=== PATIENT | male | born 1985 ===

== ENCOUNTER → 2024-02-22 10:31 | Outpatient (BNVA) | payer OTHER, SELFPAY | PROVIDERS: Visit Provider Physician Assistant Medical | DX: S61.212A Laceration without foreign body of right middle finger without damage to nail, initial encounter (principal); S56.423A Laceration of extensor muscle, fascia and tendon of right middle finger at forearm level, initial encounter; W31.2XXA Contact with powered woodworking and forming machines, initial encounter | CPT/HCPCS: 12001; 99204 ==

== ENCOUNTER 2024-02-24 09:01 | Outpatient (AMB) | payer OTHER, SELFPAY ==
--- NOTE | 2024-02-24 09:02 | MHC.OFFVIS ---
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 Patient reports he was using a band saw when a panel when forward, pulling his right hand with it. Denies numbness and tingling. Denies finger locking. Patient continues to take Cephalexin antibiotic as well as Tylenol PRN for pain. Reports prior injury to the right hand with a fence when he was a kid. 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 He sustained a work-related laceration to the dorsal radial aspect of his right middle finger just distal to the PIP joint on 02/22/2024. He was seen in the emergency department where the wound was washed out, sutured, he was placed in a splint and on oral antibiotics. 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 He has an oblique laceration over the dorsal radial aspect of the right middle finger just distal to the PIP joint. The laceration is about 1.5 cm in length, and is sutured closed. No drainage today. The patient is able to fully and actively extend the middle finger at all joints. He can hold the middle finger extended against resistance at the PIP and D IP joints, and without pain. He can actively flex and extend between 45 degrees and full extension without discomfort. Cap refill brisk and sensation intact to the tip of the digit in both the radial digital nerve and ulnar digital nerve distributions Radiographs: None available Psych Appearance: grossly normal Affect: normal affect Attitude: cooperative Assessment & Plan Assessment & Plan (1) Laceration of right middle finger: Code(s): S61.212A - Laceration without foreign body of right middle finger without damage to nail, initial encounter Category: Medical Plan Assessment and plan: 1. Right middle finger partial extensor tendon laceration Just distal and radial to the PIP joint. Central slip appears to be intact. Strong active and full extension of the PIP and D IP joints against resistance This is a work place related injury I educated the patient about this condition We discussed operative and non operative treatment options. The patient reports that the provider that is saw him at work connection saw that part of the tendon was cut. Given his physical exam, I believe we can manage this non operatively. I educated him about wound care and activity modification. He is going to perform daily dressing changes, and start washing the wound with soap and water in the shower on Thursday. We fitted him with a splint to hold the PIP joint in extension. He may remove this to shower. When he has it off he can actively move between 45 degrees of flexion and full extension at the PIP joint, but should not bring the PIP joint into any further flexion. I am ordering an OT hand therapy consult. I am thinking they can make him a custom thermoplastic splint that will prevent flexion beyond 45 degrees at the PIP joint but allow for full range of motion of the MCP joint. They can also work on gentle range of motion between full extension 45 degrees of flexion. I do not want him flexing beyond 45 degrees until 6 weeks post injury. Follow up next week for a wound check and suture removal. Continue antibiotics until finished. Coding Level of Care Code New Pt Level 4 (52463) Diagnoses Laceration of right middle finger S61.212A
== END 2024-02-24 09:57 | disposition home or self-care (01) ==
PROVIDERS: Visit Provider Orthopaedic Surgery
DX: S61.212A Laceration without foreign body of right middle finger without damage to nail, initial encounter (principal); Z04.2 Encounter for examination and observation following work accident
CPT/HCPCS: 29130; 99203

== ENCOUNTER → 2024-02-24 09:01 | Outpatient (BNVA) | payer OTHER, SELFPAY | PROVIDERS: Visit Provider Orthopaedic Surgery | DX: S61.212A Laceration without foreign body of right middle finger without damage to nail, initial encounter (principal) | CPT/HCPCS: 29130; 99202 ==

== ENCOUNTER 2024-03-02 13:19 | Outpatient (AMB) | payer OTHER, SELFPAY ==
--- NOTE | 2024-03-02 13:40 | MHC.OFFVIS ---
Intake Visit Reasons: OV-RT 3rd digit Laceration-Wound check Intake Note: Emory is a 38 year old right hand dominant male who presents today for a wound check and suture removal s/p work-related laceration to the right middle finger, DOI 02/22/24. Patient reports he is doing well. No pain or discomfort at the moment. Allergies augmentin Allergy (Unknown, Uncoded 02/24/24 09:08) Hives HPI HPI OV-RT 3rd digit Laceration-Wound check: Details: Emory is a 38 year old right hand dominant man who returns for a wound check of his right middle finger laceration, DOI: 02/22/24. He sustained a work-related laceration to the dorsal radial aspect of his right middle finger just distal to the PIP joint on 02/22/2024. He says he is doing well and he denies any pain. 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 He says he was suspended from work yesterday due to his injury. 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 All Sutures removed and Steri-Strips applied Vascular: Cap refill brisk and sensation intact to the tip of the digit in both the radial digital nerve and ulnar digital nerve distributions ROM: He is able to fully and actively extend the middle finger at all joints. He can hold the middle finger extended against resistance at the PIP and DIP joints, and without pain. He can actively flex and extend between 45 degrees and full extension without discomfort. I did not make an flex beyond 45 degrees at the PIP joint. He has an oblique laceration over the dorsal radial aspect of the right middle finger just distal to the PIP joint. The laceration is ~1.5cm in length, and is sutured closed. No drainage today. Psych Appearance: grossly normal Affect: normal affect Attitude: cooperative Assessment & Plan Assessment & Plan (1) Laceration of right middle finger: Code(s): S61.212A - Laceration without foreign body of right middle finger without damage to nail, initial encounter Category: Medical Plan Assessment and plan: 1. Right middle finger partial extensor tendon laceration Just distal and radial to the PIP joint. Central slip appears to be intact. Strong active and full extension of the PIP and DIP joints against resistance This is a work place related injury, DOI: 02/22/24 I educated the patient about this condition We discussed operative and non operative treatment options. The patient reports that the provider that is saw him at work connection saw that part of the tendon was cut. Given his physical exam, I believe we can manage this non operatively. I educated him about wound care and activity modification. He will continue to perform wound care & dressing changes at home He will continue to wear his splint to hold the PIP joint in extension. He may remove this to shower. When he has it off he can actively move between 45 degrees of flexion and full extension at the PIP joint, but should not bring the PIP joint into any further flexion. He was given a note for work, to remain on light duty with a 2lb weight limit for 4 weeks, effective 03/02/24, and to wear his splint while at work OT hand therapy made him a custom thermoplastic splint that will prevent flexion beyond 45 degrees at the PIP joint but allow for full range of motion of the MCP joint. They can also work on gentle range of motion between full extension 45 degrees of flexion. I do not want him flexing beyond 45 degrees until 6 weeks post injury. He will follow up next week for a wound check and possible suture removal He will follow up in 4 weeks for a ROM check. Anticipate return to full duty at that time. Scribed for oRsa Javed MD by Johnnie Naqvi expert medical writer, on 03/02/24 at 1:55 PM, EST. Coding Level of Care Code Est Pt Level 3 (86272) Diagnoses Laceration of right middle finger S61.212A
== END 2024-03-02 14:11 | disposition home or self-care (01) ==
PROVIDERS: Visit Provider Orthopaedic Surgery
DX: S61.212A Laceration without foreign body of right middle finger without damage to nail, initial encounter (principal)
CPT/HCPCS: 99213

== ENCOUNTER → 2024-03-02 13:19 | Outpatient (BNVA) | payer OTHER, SELFPAY | PROVIDERS: Visit Provider Orthopaedic Surgery | DX: S61.212D Laceration without foreign body of right middle finger without damage to nail, subsequent encounter (principal) | CPT/HCPCS: 99212 ==

== ENCOUNTER 2024-03-30 12:47 | Outpatient (AMB) | payer OTHER, SELFPAY ==
--- NOTE | 2024-03-30 13:47 | MHC.OFFVIS ---
Vital Signs 03/30/24 13:50 Height 5 ft 3 in Weight 242 lb BMI 42.9 Intake Visit Reasons: OV-RT 3rd digit Laceration Intake Note: Emory is a 38 year old right hand dominant male who presents today for a wound check and suture removal s/p work-related laceration to the right middle finger, DOI 02/22/24. Patient reports improvement in his ROM with at home exercises however he continues to have some stiffness in his finger. States discomfort/pain with accidentally bumping his finger. He was not scheduled with OT due to worker comp insurance information not accurate. Allergies augmentin Allergy (Unknown, Uncoded 03/30/24 13:55) Hives HPI HPI OV-RT 3rd digit Laceration: Details: Emory is a 38 year old right hand dominant man who returns for a wound check of his right middle finger laceration, DOI: 02/22/24. He sustained a work-related laceration to the dorsal radial aspect of his right middle finger just distal to the PIP joint on 02/22/2024. He says he is doing well and he denies any pain most of the time. He does have pain if he bumps his finger against a surface. he says he has been working on ROM exercises at home. He was not able to attend OT due to an issue with his workers comp paperwork. He feels his motion has improved bur he still has some difficulty with stiffness. He says he discontinued his splint himself at home, and ended up losing it. 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 He ays his work did not recognize his work restrictions and he has been working full duty since his last appointment. 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 Review of Systems Const All systems reviewed & are unremarkable except as noted in HPI and below Physical Exam Vital Signs: BMI result Body Mass Index 42.9 Const General: no acute distress and alert Orientation/consciousness: patient oriented x3 Neuro General: patient oriented x3 Extrem Other: Evaluation of Right Upper Extremity: The patient is alert, oriented, and in no acute distress Neuro: Median, Ulnar, Radial nerves motor and sensory intact and sensation is normal to the tips of all digits Vascular: Cap refill brisk ROM: He is able to fully and actively extend the middle finger at all joints. He can hold the middle finger extended against resistance at the PIP and DIP joints, and without pain. He has full active extension of the PIP joint when the MCP joint is fully flexed He has a healed oblique laceration over the dorsal radial aspect of the right middle finger just distal to the PIP joint. Psych Appearance: grossly normal Affect: normal affect Attitude: cooperative Assessment & Plan Assessment & Plan (1) Laceration of right middle finger: Code(s): S61.212A - Laceration without foreign body of right middle finger without damage to nail, initial encounter Category: Medical Plan Assessment and plan: 1. Right middle finger partial extensor tendon laceration Just distal and radial to the PIP joint. Central slip appears to be intact. Strong active and full extension of the PIP and DIP joints against resistance This is a work place related injury, DOI: 02/22/24 I educated the patient about this condition He ended up losing his finger splint, and appears to be doing well in regards to his function He should massage about his finger to prevent any hypersensitivity He was unable to continue attending OT hand therapy due to an issue with his insurance and work connections. Despite losing his splint, he appears to be doing very well and with excellent active PIP extension. At this point he may resume all activities without restriction He will follow up prn Scribed for Rosa Javed MD by Johnnie Naqvi, mobile paramedical examiner, on 03/30/24 at 2:15 PM, EST. Scribe Plan - Not visible on output: Scribed for Rosa Javed MD by Johnnie Naqvi mobile paramedical examiner, on [ ] at [ ], EST. Coding Level of Care Code Est Pt Level 3 (98696) Diagnoses Laceration of right middle finger S61.212A
[2024-03-30 13:50] VITALS: BMI 42.9
== END 2024-03-30 14:29 | disposition home or self-care (01) ==
PROVIDERS: Visit Provider Orthopaedic Surgery
DX: S61.212A Laceration without foreign body of right middle finger without damage to nail, initial encounter (principal)
CPT/HCPCS: 99213

== ENCOUNTER → 2024-05-05 09:58 | Outpatient (BNVA) | payer OTHER, SELFPAY | PROVIDERS: Visit Provider Physician Assistant Medical | DX: M65.331 Trigger finger, right middle finger (principal); S66.322D Laceration of extensor muscle, fascia and tendon of right middle finger at wrist and hand level, subsequent encounter; W31.2XXD Contact with powered woodworking and forming machines, subsequent encounter | CPT/HCPCS: 99213 ==

== ENCOUNTER 2024-06-14 11:07 | Outpatient (AMB) | payer OTHER, SELFPAY ==
[2024-06-14 11:09] VITALS: BMI 42.9
--- NOTE | 2024-06-14 11:09 | A.OFFVIS_ITS ---
Vital Signs 06/14/24 11:09 Height 5 ft 3 in Weight 242 lb BMI 42.9 Intake Visit Reasons: OV- RT MF lac DOI 02/22/24, trigger finger Intake Note: Emory is a 38 year old right hand dominant male who presents today for s/p work-related laceration to the right middle finger, DOI 02/22/24. States his finger started to lock up about 1 month ago especially in the mornings and when driving. States its painful to pop his finger back up. Allergies augmentin Allergy (Unknown, Uncoded 06/14/24 11:12) Hives HPI HPI OV- RT MF lac DOI 02/22/24, trigger finger: Details: Emory is a 38 year old right hand dominant man who returns with a new complaint of right middle finger locking. he is S/P extensor tendon laceration, DOI: 02/22/24. This was a work-related injury. He complains of ~1 month of painful locking & catching of his middle finger, worse in the mornings. He says this occurred once while driving, but primarily locks up while he is sleeping. 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 He has full active extension of the PIP joint when the MCP joint is fully flexed No locking or catching of the middle finger seen today in clinic Minimally tender over the middle finger a1 federica Palpable bump felt passing under the a1 federica He has a healed oblique laceration over the dorsal radial aspect of the right middle finger just distal to the PIP joint. No tenderness over the laceration. Psych Appearance: grossly normal Affect: normal affect Attitude: cooperative Office Procedures AMB Fracture Care Details: No fracture, injection Fracture Billing Code: Fracture Billing Code Assessment & Plan Assessment & Plan (1) Trigger finger, right middle finger: Code(s): M65.331 - Trigger finger, right middle finger Category: Medical Plan Assessment and plan: 1. Right middle finger trigger finger This is a Work Connection visit I educated him about this condition I discussed operative and non-operative treatment options The patient would like to proceed with an injection Injection #1: The risks and benefits of a steroid injection including but not limited to risk of damage to blood vessels, nerves, tendons, infection, skin bleaching, failure to improve symptoms, increased pain, and possible need for further injections or other intervention were discussed with the patient and the patient wishes to proceed with the steroid injection. Once consent was obtained, I sterilely prepped the area over the A1 federica of the flexor tendon sheath of the Right middle finger. I then injected the flexor tendon sheath with a combination of 1 mL of dexamethasone (4mg/ml), and 1% lidocaine. The patient tolerated the procedure well with no complications. If the patient continues to have locking and catching 4-6 weeks following this injection, they may call to schedule appointment to discuss alternative treatment options He should be seen by me, as I want to make sure that this is indeed a trigger finger and not related to the dorsal laceration over the PIP joint. I do think it is most likely a trigger finger. Follow-up prn 2. Right middle finger partial extensor tendon laceration Just distal and radial to the PIP joint. Central slip appears to be intact. Strong active and full extension of the PIP and DIP joints against resistance This is a work place related injury, DOI: 02/22/24 Doing well overall Scribed for Rosa Javed MD by Johnnie Naqvi, medical records manager, on 06/14/24 at 11:30 AM, EST. Coding Level of Care Code Est Pt Level 4 (91829) Diagnoses Trigger finger, right middle finger M65.331 CPT Codes Fracture Care - Fracture Billing Code: Fracture Billing Code ([id number])
--- OUTSIDE RECORDS SUMMARY | 2024-06-14 13:59 | XMS_ITS | Clinical Summary ---
Author Organization [facility] Address [address] [place] [address] Phone Care Team Providers Care Telegraph Office Route Aide Name Role Phone Tylor Galvez MD Primary Care Provider [phone] Allergies Active Allergy Reactions Criticality Noted Date Comments Amoxicillin-Pot Clavulanate Hives 04/10/20 24 Iodinated Contrast Media Shortness of breath High Medications amLODIPine (NORVASC) 5 mg tablet Take 1 tablet (5 mg total) by mouth 1 (one) time each day for 14 days. 14 tablet 04/10/2024 Active Encounters Date Type Department Care Team Description 04/10/2024 6:35 AM EST - 04/10/2024 7:55 AM EST Emergency [facility] [address] [place] [address] Bridgette Izquierdo DO Nonintractable headache, unspecified chronicity pattern, unspecified headache type (Primary Dx); Hypertension, unspecified type Discharge Disposition: Home or Self Care from Last 3 Months Social History Tobacco Use Types Packs/Day Years Used Date Smoking Tobacco: Never Assessed Sex and Gender Information Value Date Recorded Sex Assigned at Not on file Legal Sex Male 12:56 PM EST Gender Identity Not on file Sexual Orientation Not on file Last Filed Vital Signs Vital Sign Reading Time Taken Comments Blood Pressure 160/117 04/10/2024 6:30 AM EST 160/117 left 154/113 right Pulse 90 04/10/2024 6:30 AM EST Temperature 36.8 ??C (98.2 ??F) 04/10/2024 6 :30 AM EST Respiratory Rate 16 04/10/2024 6:30 AM EST Oxygen Saturation 99% 04/10/2024 6:3 0 AM EST Inhaled Oxygen Concentration - - Weight 108 kg (239 lb) 04/10/2024 6:30 AM EST Height 160 cm (5' 3 ) 04/10/2024 6:30 AM EST Body Mass Index 42.34 04/10/2024 6:30 AM EST Plan of Treatment Health Maintenance Due Date Last Done Comments Diabetes: Annual GFR (Glomer ular Filtration Rate) 1984 Diabetes: Annual Foot Exam 1994 Diabetes: Annual Retina Eye Exam 1994 Hepatitis B Vaccines (1 of 3 - 19+ 3-dose series) 10/24/2003 Pneumococcal Vaccine: Pediat rics (0 to 5 Years) and At-Risk Patients (6 to 64 Years) (1 of 2 - PCV) 10/24/2003 Cholesterol Screening (Lipid Panel) 03/11/2022 Depression Screening 03/11/2022 HIV Screening 03/11/2022 Hepatitis C Screening 03/11/2022 Social Influencers of Health Screening 03/11/2022 COVID-19 Vaccine ( - 2023-2 5 season) 2023 Influenza Vaccine (#1) 2023 02/06/2017 Diabetes: Annual Urine Albumin-Creatinine Ratio (uACR) 02/18/2024 Diabetes: Blood Sugar Contro l Test (HGBA1C) 02/18/2024 Hypertension/CHF/CAD Annual BMP Blood Test 02/18/2024 DTaP,Tdap,and Td Vaccines (2 - Td or Tdap) 02/21/2034 02/22/2024 HIB Vaccines Aged Out No longer eligi ble based on patient's age to complete this topic HPV Vaccines Aged Out No longer eligi ble based on patient's age to complete this topic Hepatitis A Vaccines Aged Out No long er eligible based on patient's age to complete this topic IPV Vaccines Aged Out No longer eligi ble based on patient's age to complete this topic MMR Vaccines Aged Out No longer eligi ble based on patient's age to complete this topic Meningococcal ACWY Vaccine Aged Out N o longer eligible based on patient's age to complete this topic Meningococcal B Vacine Aged Out No lo nger eligible based on patient's age to complete this topic RSV Immunization Patients Un amx 20 months Aged Out No longer eligible b ased on patient's age to complete this topic Varicella Vaccines Aged Out No longer eligible based on patient's age to complete this topic Insurance Care Teams Telegraph Office Route Aide Relationship Specialty Start Date End Date Tylor Galvez MD [address] [place] [phone] PCP - General Internal Medicine 02/17/24
== END 2024-06-14 12:42 | disposition home or self-care (01) ==
PROVIDERS: Visit Provider Orthopaedic Surgery
DX: M65.331 Trigger finger, right middle finger (principal)
CPT/HCPCS: 20550; 99214

== ENCOUNTER → 2024-06-14 11:07 | Outpatient (BNVA) | payer OTHER, SELFPAY | PROVIDERS: Visit Provider Orthopaedic Surgery | DX: M65.331 Trigger finger, right middle finger (principal); S66.122D Laceration of flexor muscle, fascia and tendon of right middle finger at wrist and hand level, subsequent encounter | CPT/HCPCS: 20550; 99212; J1100; J2003 ==